=== PATIENT | female | born 1960 | race African-American/Black ===

== ENCOUNTER 2021-02-07 15:40 | Emergency (ER) | payer OTHER, BC, SELFPAY ==
--- NOTE | ~2021-02-07 | XR_ITS ---
EXAMINATION: XR hand RT min 3V DATE: 02/07/2021 16:19 INDICATION: Right hand second digit injury and pain. TECHNIQUE: 3 views of right hand were obtained. COMPARISON: None. FINDINGS: Bone alignment is normal. There is a nondisplaced chip fracture of tuft of third distal pha lanx. There is mild osteoarthritis of triscaphe joint, moderate osteoarthritis of first carpometacarp al joint, and mild osteoarthritis of first-third metacarpophalangeal joint and most of the interphala ngeal joints. There is a tiny calcification dorsal to neck of second middle phalanx. There is a tiny calcification ulnar to base of first proximal phalanx. IMPRESSION: 1. Nondisplaced chip fracture of tuft of third distal phalanx. 2. Polyarticular osteoarthritis. Reviewed, dictated and finalized at location A. [employer]IC[employer]
[2021-02-07 16:03] VITALS: BP 112/82; PULSE 67; RESP 18; TEMP 36.4; O2SAT 100
--- NOTE | 2021-02-07 17:48 | ED.UPPEXIN ---
HPI - Extremity Injury (Upper) General Chief Complaint: Extremity Injury, Upper Stated Complaint: Right finger,hand Pain Time Seen by Provider: 02/07/21 17:34 Source: patient and RN notes reviewed Mode of arrival: ambulatory Limitations: no limitations History of Present Illness HPI narrative: Patient presents today complaining of right third finger pain. She injured it on December 01 while at work. 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 She has been dealing with pain and swelling since that time. She currently rates her pain 10 and has been taking ibuprofen, which does not provide much relief. She is also requesting a refill of her atorvastatin as she cannot get into see her doctor which requires a visit before refill. MD complaint: injury to: right and finger Related Data Allergies Allergy/AdvReac Type Severity Reaction Status Date / Time No Known Allergies Allergy Verified 02/07/21 16:03 Review of Systems Review of Systems: CONSTITUTIONAL: Denies body aches, fever, chills, or sweats. EYES: Denies visual changes, redness, or discharge. ENT: Denies rhinorrhea, congestion, sore throat, or otalgia. CARDIOVASCULAR: Denies chest pain, palpitations, or edema. RESPIRATORY: Denies cough or dyspnea. GASTROINTESTINAL: Denies abdominal pain, nausea, vomiting, or diarrhea. GENITOURINARY: Denies dysuria or hematuria. SKIN: Denies rash, itching, or wounds. MUSCULOSKELETAL: Denies back pain, or myalgia.+ Right third finger injury NEUROLOGIC: Denies headache, numbness, tingling, or weakness. PSYCH: Denies depression or anxiety. [facility] Past Medical History Medical History (Updated 02/07/21 @ 17:54 by Karne Pickett, [facility], ) Diabetes High cholesterol Comments At time of signature, I have reviewed and agree with nursing past medical, surgical, social and family history unless otherwise noted. Please see nursing chart for further information. There is no relevant family history pertinent to the presenting complaint Exam Narrative: GENERAL: Well-appearing, well-nourished, and in no acute distress. HEAD: Normocephalic, atraumatic. EYES: EOMI. No redness or drainage. Conjunctivae normal. ENT: Mucous membranes pink and moist. NECK: Normal AROM. CHEST: No respiratory distress. EXTREMITIES: Right third finger: Tenderness and mild swelling to the distal phalanx. Distal sensation intact. Capillary refill normal. Full range of motion with increased pain. SKIN: Warm, dry, no rash. Capillary refill normal. Normal skin turgor. NEURO: No focal deficits. Alert and oriented x3. Gait steady. PSYCH: Normal affect. No signs of depression or anxiety. Course Vital Signs Vital signs: Vital Signs Temperature 97.5 F L 02/07/21 16:03 Pulse Rate 67 02/07/21 16:03 Respiratory Rate 18 02/07/21 16:03 Blood Pressure 112/82 02/07/21 16:03 Pulse Oximetry 100 02/07/21 16:03 Temperature 97.5 F L 02/07/21 16:03 Pulse Rate 67 02/07/21 16:03 Respiratory Rate 18 02/07/21 16:03 Blood Pressure 112/82 02/07/21 16:03 Pulse Oximetry 100 02/07/21 16:03 Reviewed. Pt has been instructed to follow up with her PCP regarding her elevated blood pressure today. MDM - Extremity Injury (Upper) Differential Diagnosis Differential diagnosis: Likely finger sprain and other (Finger fracture) Imaging Data Radiologist's impression: ITS Impressions Hand X-Ray 02/07/21 16:19 IMPRESSION: 1. Nondisplaced chip fracture of tuft of third distal phalanx. 2. Polyarticular osteoarthritis. Critical Care Time Critical Care Time Critical Care Time: No Discharge Plan Discharge Clinical Impression: Medication refill Finger fracture, right Qualifiers: Encounter type: initial encounter Finger: ring finger Fracture type: closed Phalanx: distal Fracture alignment: nondisplaced Qualified Code(s): S62.664A - Nondisplaced fracture of d
== END 2021-02-07 17:56 | disposition home or self-care (01) ==
PROVIDERS: Emergency Provider Nurse Practitioner
DX: S62.664A Nondisplaced fracture of distal phalanx of right ring finger, initial encounter for closed fracture (principal); X58.XXXA Exposure to other specified factors, initial encounter; E11.9 Type 2 diabetes mellitus without complications; E78.00 Pure hypercholesterolemia, unspecified
CPT/HCPCS: 29130; 73130; 99204; G0463

== ENCOUNTER 2021-04-28 08:55 | Outpatient (CLI) | payer OTHER, BC, SELFPAY ==
--- NOTE | 2021-04-28 11:30 | NEURO_ITS ---
Impression: # Complains of right hand numbness. # Right moderate Carpal Tunnel Syndrome. # No ulnar neuropathy. # Normal needle/EMG exam. # Clinical correlation recommended. Nerve Conduction Studies Anti Sensory Summary Table Stim Site NR Peak (ms) P-T Amp (?V) Site1 Site2 Delta-P (ms) Dist (cm) Ronen (m/s) Right Median Anti Sensory (2-3nd Digit) Wrist 4.8 21.2 Wrist 2-3nd Digit 4.8 14.0 29 Wrist 7.6 31.5 Wrist 2-3nd Digit 4.8 14.0 29 Right Radial Anti Sensory (Base 1st Digit) Wrist 2.2 21.9 Wrist Base 1st Digit 2.2 0.0 Right Ulnar Anti Sensory (5th Digit) Wrist 2.3 28.8 Wrist 5th Digit 2.3 14.0 61 Motor Summary Table Stim Site NR Onset (ms) O-P Amp (mV) Site1 Site2 Delta-0 (ms) Dist (cm) Ronen (m/s) Right Median Motor (Abd Poll Brev) Wrist 5.5 3.3 Elbow Wrist 5.0 29.0 58 Elbow 10.5 5.8 Right Ulnar Motor (Abd Dig Minimi) Wrist 2.7 3.1 A Elbow Wrist 5.3 31.0 58 A Elbow 8.0 2.2 F Wave Studies NR F-Lat (ms) L-R F-Lat (ms) Right Median (Mrkrs) (Abd Poll Brev) 30.49 Right Ulnar (Mrkrs) (Abd Dig Min) 29.61 EMG Side Muscle Nerve Root Ins Act Fibs Amp Dur Recrt Comment Right 1stDorInt Ulnar C8-T1 Nml Nml Nml Nml Nml Right Ext Indicis Radial (Post Int) C7-8 Nml Nml Nml Nml Nml Right Ext Digitorum Radial (Post Int) C7-8 Nml Nml Nml Nml Nml Right BrachioRad Radial C5-6 Nml Nml Nml Nml Nml Right PronatorTeres Median C6-7 Nml Nml Nml Nml Nml Right Abd Poll Brev Median C8-T1 Nml Nml Nml Nml Nml MTDD
== END 2021-04-28 08:56 | disposition home or self-care (01) ==
PROVIDERS: Visit Provider Plastic Surgery
DX: R20.2 Paresthesia of skin (principal); M79.641 Pain in right hand; G56.01 Carpal tunnel syndrome, right upper limb
CPT/HCPCS: 95886; 95909